=== PATIENT | female | born 1930 | race Caucasian/White ===

== ENCOUNTER 2016-07-19 02:55 | Emergency (ER) | payer MEDICARE, BC ==
--- NOTE | ~2016-07-19 | CR253 ---
[facility] A Service of [facility] RADIOLOGY TEXT RESULTS PATIENT: DYANA DUNHAM LOCATION: SED : 30 UNIT #: [id number] AGE: [address]: Dash Coleman MD SEX: F ORDER DR: [id number] [place] [id number] MR#: [id number] Acc #: [id number] NAME: DYANA DUNHAM : 1930 SEX: F STUDY DATE/TIME: 07/19/2016 3:18 UNIT: SED ROOM: STUDY DESCRIPTION: CR Tibia and Fibula 2 Views Rt Attending Physician: Dash Coleman M.D. Ordering Physician: Dash Coleman M.D. Primary Care Physician: Yao Fernandez M.D. MEDICAL IMAGING REPORT This report is preliminary unless electronic signature is present. EXAM Tib-fib on the right, 07/19/2016. INDICATION Pain in the tib-fib distally. Symptoms began 0100 hours tonight after a fall. Acute pain. TECHNIQUE 2 views of the right tib-fib were performed. Correlation is made with CT 10/16/2015. FINDINGS Extensive postoperative changes of the right knee. The patient is status post screw and plate fixation of the distal fibula. The bones are osteoporotic. No acute fracture. Surgical hardware appears intact. Nonspecific soft tissue calcifications. IMPRESSION Extensive postoperative changes of the right knee and proximal tibia. Old healed fracture repair of the distal fibula. The bones are osteoporotic but there is no acute-appearing fracture. Dictated by... Abilio Ramirez M.D. THIS IS AN ELECTRONICALLY VERIFIED REPORT Abilio Ramirez M.D. at 07/19/2016 9:56 PM NISHI/pam TD: 07/19/2016 15:05 [facility] A Service [facility] RADIOLOGY TEXT RESULTS PATIENT: DYANA DUNHAM LOCATION: SED : 30 UNIT #: [id number] AGE: [address]: Dash Coleman MD SEX: F ORDER DR: JOB #: [id number] MEDICAL IMAGING REPORT Page 1 of 1
[~2016-07-19 02:55] MED LIST: ALDACTAZIDE PO; ALLEGRA PO; ALLEGRA180 MG PO; ASPIRIN PO; ATENOLOL PO; ATENOLOL50 MG PO; BACTRIM; BAYER CHEWABLE81 MG PO; BENADRYL25 MG PO; CARDIZEM CD180 M1 PO; CETIRIZINE HCL10 MG PO; COMBIVENT U/D3 M2 INH; COUMADIN PO; COUMADIN2.5 MG PO; COUMADIN5 MG PO; D-20002000 UNIT PO; DARVOCET-N 1001 TAB PO; DICLOFENAC PO; ELIQUIS2.5 MG PO; FAMOTIDINE20 M1 PO; FAMOTIDINE20 MG PO; FAST RELIEF LAX10 MG PR; FLONASE16 GM; FLUTICASONE; FOSAMAX PO; FUROSEMIDE40 MG PO; GLUCOPHAGE500 MG PO; K-DUR20 ME1 PO; KETOPROFEN PO; LANOXIN125 MCG PO; LASIX20 MG PO; LINZESS145 MCG; LISINOPRIL PO; LISINOPRIL20 MG PO; LOVENOX40 MG/0.4 INJ; LOW DOSE ASPIRI81 M1 PO; METFORMIN HCL500 M1 PO; MILK OF MA2400 MG/10 PO; NAMZARIC; NAMZARIC 28 MG1 EACH; NASONEX17 GM; NIACIN PO; NIACIN500 M2 PO; NITROSTAT0.4 MG; OCUVITE ADULT1 EACH PO; OCUVITE SOFTGEL1 CA1 PO; OCUVITE TABLET1 TA1 PO; OCUVITE TABLET1 TAB; OCUVITE TABLET1 TAB PO; OXYCODONE-ACET1 EACH PO; OXYGEN; PANTOTHENIC ACID PO; PEPCID AC20 M2 PO; PERCOCET 5-3251 TAB; POLYETHYLENE GL17 GM PO; PRAVASTATIN SOD20 MG PO; PYRIDIUM; SODIUM CHLORIDE1 GM PO; TENORMIN50 MG PO; TIZANIDINE HCL4 M1 PO; VICODIN 5/1 TAB 5/50 PO; VISION VITAMIN1 EACH PO; VIT D 3 PO; VITAMIN D 4001 UDTAB PO; VITAMIN D-3 PO; VITAMIN D3 PO; VITAMIN E400 UNI1 PO; WARFARIN SODIUM3 M1 PO; ZANAFLEX PO; ZANAFLEX4 M1 PO; ZANTAC150 M1 PO; ZAROXOLYN10 MG PO; ZAROXYLYN PO; ZINC50 M1 PO; ZYRTEC10 M3 PO; [UNRECOGNIZED DRUG - CODE] PO; [UNRECOGNIZED DRUG - CODE] PO; [UNRECOGNIZED DRUG - OTHER]; [UNRECOGNIZED DRUG - OTHER] IV
== END 2016-07-19 05:54 | disposition home or self-care (01) ==
LOC: SED 02:55
DX: S81.811A Laceration without foreign body, right lower leg, initial encounter (principal); I48.91 Unspecified atrial fibrillation; I10 Essential (primary) hypertension; I50.9 Heart failure, unspecified; Z88.5 Allergy status to narcotic agent; Z23 Encounter for immunization; Z79.899 Other long term (current) drug therapy; W18.09XA Striking against other object with subsequent fall, initial encounter; Y92.098 Other place in other non-institutional residence as the place of occurrence of the external cause
CPT/HCPCS: 12002; 73590; 90471; 90715; 99283

== ENCOUNTER 2016-07-24 08:30 | Emergency (ER) | payer MEDICARE, BC | END 2016-07-24 08:31 | disposition home or self-care (01) | LOC: SED 08:30 | DX: L76.82 Other postprocedural complications of skin and subcutaneous tissue (principal); E11.9 Type 2 diabetes mellitus without complications; E78.5 Hyperlipidemia, unspecified; I10 Essential (primary) hypertension; Z79.899 Other long term (current) drug therapy | CPT/HCPCS: 99282; 99283 ==

== ENCOUNTER 2016-11-17 13:56 | Emergency (ER) | payer MEDICARE, BC ==
[~2016-11-17] VITALS: Ht 144.8 cm; Wt 44.9 kg
--- NOTE | ~2016-11-17 | EKG ---
PATIENT: DYANA DUNHAM UNIT #: [id number] Ventricular Rate: 97 BPM Atrial Rate: 366 BPM QRS Duration: 80 ms Q-T Interval: 350 ms QTC Calculation(Bezet): 444 ms Calculated R Booker: -20 degrees Calculated T Booker: 9 degrees Diagnosis Line: Atrial flutter with variable A-V block Diagnosis Line: Junctional ST depression, probably normal Diagnosis Line: Abnormal ECG Diagnosis Line: When compared with ECG of 15-OCT-2015 18:29, Diagnosis Line: Atrial flutter has replaced Atrial fibrillation Diagnosis Line: Nonspecific T wave abnormality no longer evident Diagnosis Line: in Anterior leads Diagnosis Line: Confirmed by NUHA MICHAEL MD ([id number]) on Diagnosis Line: 11/17/2016 5:12:00 PM INTERPRETING MD: FERNANDA SANDOVAL
[2016-11-17 15:19] LABS: BASOPHIL% 0.6 % (0-2.5); EOSINOPHIL# 0.1 X10e3 (0-0.7); EOSINOPHIL% 1.4 % (0.0-7.0); HEMOGLOBIN 11.2 gm/dL (12.0-16.0); LYMPHOCYTE# 1.6 X10e3 (1.0-3.5); LYMPHOCYTE% 27.9 % (17.0-45.0); MEAN CELL VOLUME 98.2 FL (83-96); MEAN CORPUSCULAR HEMOGLOBIN 32.3 PG (28-34); MEAN CORPUSCULAR HGB CONC 32.9 g/dL (30-36); MEAN PLATELET VOLUME 8.7 FL (6.5-11.5); MONOCYTE# 0.6 X10e3 (0-1.0); MONOCYTE% 10.8 % (3.0-12.0); NEUTROPHIL# 3.4 X10e3 (1.5-7.1); NEUTROPHIL% 59.3 % (40-75); PLATELET COUNT 269 X10e3 (140-420); RED BLOOD COUNT 3.46 X10e (3.90-5.30); RED CELL DISTRIBUTION WIDTH 15.7 % (11.0-15.5); WHITE BLOOD COUNT 5.7 X10e3 (4.0-10.5)
[2016-11-17 15:24] LABS: DIFF IND NO
[2016-11-17 15:41] LABS: ALBUMIN SERUM 3.4 g/dL (3.5-5.0); BILIRUBIN,TOTAL 0.8 mg/dL (0.2-2.0); CALCIUM SERUM 9.5 mg/dL (8.4-10.2); POTASSIUM 4.6 mmol/L (3.5-5.1); PROTEIN TOTAL SERUM 7.4 g/dL (6.0-8.3)
[2016-11-17 17:47] LABS: URINE SOURCE CLEAN CATCH
[2016-11-17 17:55] LABS: URINE APPEARANCE CLEAR; URINE BILIRUBIN NEG (NEG); URINE BLOOD NEG (NEG); URINE COLOR YELLOW; URINE GLUCOSE NEG (NEG); URINE KETONE NEG (NEG); URINE LEUKOCYTE ESTERASE NEG (NEG); URINE NITRATE NEG (NEG); URINE PH 5.5 (5-8); URINE PROTEIN NEG (NEG); URINE SPECIFIC GRAVITY 1.012 (1.003-1.035); URINE UROBILINOGEN 0.2 MG/DL (NEG)
[2016-11-17 18:00] LABS: CULTURE INDICATED? NO
== END 2016-11-17 18:31 | disposition home or self-care (01) ==
LOC: CED 13:56
PROVIDERS: Emergency Medicine
DX: E87.5 Hyperkalemia (principal); I11.0 Hypertensive heart disease with heart failure; I50.9 Heart failure, unspecified; I48.91 Unspecified atrial fibrillation; Z79.899 Other long term (current) drug therapy; Z88.5 Allergy status to narcotic agent
CPT/HCPCS: 80053; 80162; 81003; 85025; 93005; 99285